=== PATIENT | male | born 1950 | race Caucasian/White ===

== ENCOUNTER 2017-12-09 05:20 | Day surgery (SDC) | payer OTHER ==
[~2017-12-09] VITALS: Ht 177.8 cm; Wt 145.2 kg
--- NOTE | ~2017-12-09 | EKG ---
[address] [address] ELECTROCARDIOGRAM REPORT Name: NEETA MOJICA Room #: 150-4 [facility].#: [id number] Admission: 12/09/17 Attend Phys: Italo Espino, Discharge: Date of : 48 Report #: [id number] THIS REPORT FOR: //name// [facility] Test Date: 2017-12-09 Test Time: 06:41:12 Pat Name: NEETA MOJICA Department: Room: 150 4 Gender: M Java Lead Architect: NICOLÁS : 1950 Requested By: Italo Espino Order Number: [id number] MD: Kain Rodriguez Measurements Intervals [place] Rate: 97 P: 70 [place]: 190 QRS: 24 QRSD: 92 T: 60 QT: 350 QTc: 445 Interpretive Statements Sinus rhythm Normal tracing No previous ECG available for comparison Electronically Signed On 12-09-2017 9:01:36 CDT by Kain Rodriguez [email or web address] <ELECTRONICALLY SIGNED> By: Kain Rodriguez MD, [facility] 12/09/17 0901 [id number] Kain Rodriguez MD, FACC /EPI
[~2017-12-09 05:20] MED LIST: ATORVASTATIN CA40 MG PO; CALCIUM 500 +1 EAC5 PO; CENTRUM SILVER1 EAC2 PO; FLOMAX0.4 MG PO; GABAPENTIN800 M1 PO; GLUCOPHAGE XR500 MG PO; IRON325 PO; LEVEMIR FL100 UNIT/2 SUBQ; LISINOPRIL5 MG PO; NOVOLOG FL100 UNIT/M SUBQ; SYNTHROID88 MCG PO; TRAMADOL 50 MG50 MG PO; VENTOLIN HFA 1818 GM INH; VITAMIN B-121000 MC3 PO; VITAMIN D2000 UNIT PO; ZANTAC 150MG T150 MG PO
[2017-12-09 06:44] LABS: HEMATOCRIT 35.9 % (42.0-52.0); HEMOGLOBIN 12.2 gm/dL (14.0-18.0); MCV 94.1 fL (80.0-100.0); RBC 3.81 mil/uL (4.50-6.00); RDW 12.9 % (10.5-14.5)
[2017-12-09 08:13] VITALS: BP 144/66
== END 2017-12-09 10:20 | disposition home or self-care (01) ==
LOC: EDSEX → OR 05:20 → TBA 05:21 → OR 10:20
PROVIDERS: Preventive Medicine Occupational Medicine
DX: M96.1 Postlaminectomy syndrome, not elsewhere classified (principal); G89.4 Chronic pain syndrome; I12.9 Hypertensive chronic kidney disease with stage 1 through stage 4 chronic kidney disease, or unspecified chronic kidney disease; E11.22 Type 2 diabetes mellitus with diabetic chronic kidney disease; N18.9 Chronic kidney disease, unspecified; J44.9 Chronic obstructive pulmonary disease, unspecified; M19.90 Unspecified osteoarthritis, unspecified site; E78.5 Hyperlipidemia, unspecified; D64.9 Anemia, unspecified; N40.0 Benign prostatic hyperplasia without lower urinary tract symptoms; E03.9 Hypothyroidism, unspecified; K21.9 Gastro-esophageal reflux disease without esophagitis; Z96.653 Presence of artificial knee joint, bilateral; Z91.040 Latex allergy status; Z88.8 Allergy status to other drugs, medicaments and biological substances; Z79.899 Other long term (current) drug therapy; Z98.890 Other specified postprocedural states; Z87.891 Personal history of nicotine dependence; Z90.49 Acquired absence of other specified parts of digestive tract; Z79.4 Long term (current) use of insulin; Z88.6 Allergy status to analgesic agent; Z98.84 Bariatric surgery status
CPT/HCPCS: 50010; 50101; 50386; 50417; 51536; 56524; 56526; 57196; 57197; 57198; 57199; 57200; 57201; 62110; 62850; 70005